=== PATIENT | male | born 1940 | race Hispanic/Latino ===

== ENCOUNTER → 2019-09-09 | Outpatient (CLI) | payer MEDICARE ==
[~2019-09-09] MED LIST: IOHEXOL-350 75 ML VIAL IV ONE
== END | disposition home or self-care (01) ==
LOC: RAH 09:53
PROVIDERS: ATTEND Internal Medicine
DX: N28.1 Cyst of kidney, acquired (principal); J98.11 Atelectasis; I70.8 Atherosclerosis of other arteries; M47.816 Spondylosis without myelopathy or radiculopathy, lumbar region
CPT/HCPCS: 74178; Q9967

== ENCOUNTER 2020-03-25 10:12 | Inpatient (IN) | payer MEDICARE ==
[2020-03-25] VITALS (22 sets, daily range): BP systolic 93–128; BP diastolic 57–79
[~2020-03-25] VITALS: Ht 175.3 cm; Wt 74.2 kg
[2020-03-25] MEDS ORDERED: TETANUS/DIPHTHERIA TOXOID [ADULT] 0.5 ML VIAL IM ONE (10:50)
[2020-03-25] MEDS ORDERED: CEFAZOLIN SODIUM 1 GM VIAL ONE ×2 (10:50→13:58)
[2020-03-25 11:18] LABS: BASOPHILS % (AUTO) 0.3 % (0.0-5.0); EOSINOPHILS % (AUTO) 0.7 % (0.0-8.0); HEMATOCRIT 35.8 % (42-54); LYMPHOCYTES % (AUTO) 6.3 % (21.0-51.0); MEAN CORPUSCULAR HEMOGLOBIN 31.5 pg (27.0-33.0); MEAN CORPUSCULAR HGB CONC 34.4 g/dL (32.0-36.0); MEAN CORPUSCULAR VOLUME 91.8 fL (79-99); MONOCYTES % (AUTO) 6.7 % (3.0-13.0); NEUTROPHILS % (AUTO) 85.7 % (40.0-77.0); PLATELET COUNT (AUTO) 144 K/uL (130-400); WHITE BLOOD COUNT (AUTO) 7.5 K/uL (4.8-10.8)
[2020-03-25 11:25] LABS: CREATININE 1.1 mg/dL (0.5-1.5); POTASSIUM 3.1 mmol/L (3.5-5.1)
[2020-03-25 11:32] LABS: ALBUMIN 3.7 g/dL (3.5-5.0); TOTAL PROTEIN, SERUM 6.9 g/dL (6.0-8.3)
[2020-03-25 11:45] LABS: INR 1.04 (0.85-1.15); PROTHROMBIN TIME 11.1 SEC (9.6-11.6)
[2020-03-25 11:46] LABS: PARTIAL THROMBOPLASTIN TIME 27.6 SEC (26.3-35.5)
[2020-03-25] MEDS ORDERED: ACETAMINOPHEN 325 MG TAB PO PRN (12:00)
[2020-03-25] MEDS ORDERED: MORPHINE SULFATE 4 MG/1ML SYG IVP PRN (12:00)
[2020-03-25] MEDS ORDERED: LACTATED RINGERS 1000ML 1,000 ML IV SCH (12:00)
[2020-03-25] MEDS ORDERED: MORPHINE SULFATE 2 MG/ML 1ML SYG IVP PRN (12:00)
[2020-03-25] MEDS ORDERED: ACETAMINOPHEN 650 MG SUPPOSITORY RC PRN (12:00)
[2020-03-25] MEDS ORDERED: CLONIDINE HCL 0.1 MG TABLET PO PRN (12:00)
[2020-03-25] MEDS ORDERED: SODIUM CHLORIDE 0.9% 1000ML 1,000 ML IV ONE (12:14)
[2020-03-25] MEDS ORDERED: POTASSIUM CHLORIDE 10MEQ/100ML 100 ML IV ONE (12:14)
[2020-03-25] MEDS ORDERED: POTASSIUM CHLORIDE 20MEQ/100ML 100 ML IV PRN ×4 (12:15→21:15)
[2020-03-25] MEDS ORDERED: LIDOCAINE HCL-MPF 1% 2ML VIAL IV PRN ×4 (12:15→21:15)
[2020-03-25] MEDS ORDERED: POTASSIUM CHLORIDE 10MEQ/100ML 100 ML IV PRN (12:15)
[2020-03-25] MEDS ORDERED: KETAMINE 50MG/ML SYRINGE 50 MG/ML DISP.SYRIN IV ONE (13:58)
[2020-03-25] MEDS ORDERED: PROPOFOL 10 MG/ML 20ML VIAL IV ONE (14:01)
[2020-03-25] MEDS ORDERED: SUCCINYLCHOLINE CHLORIDE 20 MG/ML 10 ML VIAL ONE (14:01)
[2020-03-25] MEDS ORDERED: ROCURONIUM 10MG/1ML SYR 10 MG/ML ML ONE (14:06)
[2020-03-25] MEDS ORDERED: EPHEDRINE SULFATE 50 MG/ML AMPULE ONE (14:17)
[2020-03-25] MEDS ORDERED: GENTAMICIN SULFATE 80 MG/2 ML VIAL ONE (14:21)
[2020-03-25] MEDS ORDERED: NEOSTIGMINE 5MG/5ML SYR IV ONE (14:44)
[2020-03-25] MEDS ORDERED: GLYCOPYRROLATE 1 MG/5 ML SYRINGE ONE (14:44)
[2020-03-25] MEDS ORDERED: ESMOLOL HCL 10 MG/ML 10 ML VIAL ONE (14:50)
[2020-03-25] MEDS: LACTATED RINGERS 1000ML 1,000 ML IV SCH ×2 (17:15→20:42)
[2020-03-25] MEDS: FAMOTIDINE/PF 20 MG/2 ML VIAL IV SCH (20:41)
[2020-03-25] MEDS: HYDROCODONE/ACETAMINOPHEN 5/325 MG TAB PO PRN (20:41)
[2020-03-25] MEDS ORDERED: POTASSIUM CHLORIDE 20 MEQ ERTAB PO PRN (21:15)
[2020-03-25] MEDS: CEFAZOLIN SODIUM 1 GM VIAL IVP SCH (22:10)
[2020-03-25] MEDS: POTASSIUM CHLORIDE 10% ELIXIR 20 MEQ/15 ML UDCUP PO PRN (23:52)
[2020-03-26] MEDS: POTASSIUM CHLORIDE 10% ELIXIR 20 MEQ/15 ML UDCUP PO PRN ×5 (01:58→20:46)
[2020-03-26 03:59] VITALS: BP 132/73
[2020-03-26 04:53] LABS: MEAN CORPUSCULAR HEMOGLOBIN 31.3 pg (27.0-33.0); MEAN CORPUSCULAR HGB CONC 34.7 g/dL (32.0-36.0); WHITE BLOOD COUNT (AUTO) 9.8 K/uL (4.8-10.8)
[2020-03-26 05:07] LABS: CREATININE 0.9 mg/dL (0.5-1.5); POTASSIUM 3.2 mmol/L (3.5-5.1)
[2020-03-26] MEDS: CEFAZOLIN SODIUM 1 GM VIAL IVP SCH ×3 (05:43→20:45)
[2020-03-26 07:30] VITALS: BP 125/72
[2020-03-26] MEDS: FAMOTIDINE/PF 20 MG/2 ML VIAL IV SCH ×2 (09:27→20:45)
[2020-03-26] MEDS: HYDROCODONE/ACETAMINOPHEN 5/325 MG TAB PO PRN ×2 (09:35→13:47)
[2020-03-26] MEDS: LACTATED RINGERS 1000ML 1,000 ML IV SCH (10:16)
[2020-03-26 11:00] VITALS: BP 137/78
[2020-03-26 16:00] VITALS: BP 135/76
[2020-03-26 20:00] VITALS: BP 136/81
[2020-03-27] VITALS: BP 136/76
[2020-03-27 04:00] VITALS: BP 127/70
[2020-03-27 04:41] LABS: HEMATOCRIT 34.7 % (42-54); MEAN CORPUSCULAR HEMOGLOBIN 31.1 pg (27.0-33.0); MEAN CORPUSCULAR VOLUME 91.6 fL (79-99); RED BLOOD CELL COUNT(AUTO) 3.79 MIL/uL (4.50-6.20); RED CELL DISTRIBUTION WIDTH 13.1 % (11.0-15.5); WHITE BLOOD COUNT (AUTO) 7.6 K/uL (4.8-10.8)
[2020-03-27 04:48] LABS: CREATININE 0.8 mg/dL (0.5-1.5); POTASSIUM 3.9 mmol/L (3.5-5.1)
[2020-03-27] MEDS: CEFAZOLIN SODIUM 1 GM VIAL IVP SCH ×2 (06:16→14:14)
[2020-03-27 08:00] VITALS: BP 116/68
[2020-03-27] MEDS: FAMOTIDINE/PF 20 MG/2 ML VIAL IV SCH (08:51)
[2020-03-27 12:00] VITALS: BP 103/65
[2020-03-27] MEDS ORDERED: IBUP-2076 PO (15:54)
[2020-03-27] MEDS ORDERED: ACET1TAB25 PO (15:54)
[2020-03-27 16:00] VITALS: BP 120/72
[2020-03-27] MEDS: HYDROCODONE/ACETAMINOPHEN 5/325 MG TAB PO PRN (17:27)
== END 2020-03-27 18:22 | disposition home or self-care (01) | DRG 512 ==
LOC: EDH 10:12 → EDHIP 12:00 → 3DH 16:40
PROVIDERS: ADMIT Internal Medicine Critical Care Medicine; ATTEND Internal Medicine Critical Care Medicine
PROC: 0PHH05Z Insertion of External Fixation Device into Right Radius, Open Approach (ICD-10-PCS; principal; 2020-03-25 13:57)
DX: S52.571B Other intraarticular fracture of lower end of right radius, initial encounter for open fracture type I or II (principal); E78.5 Hyperlipidemia, unspecified; I10 Essential (primary) hypertension; Z20.822 Contact with and (suspected) exposure to COVID-19; K21.9 Gastro-esophageal reflux disease without esophagitis; N40.0 Benign prostatic hyperplasia without lower urinary tract symptoms; Z86.73 Personal history of transient ischemic attack (TIA), and cerebral infarction without residual deficits; E87.8 Other disorders of electrolyte and fluid balance, not elsewhere classified; Y93.89 Activity, other specified; Y99.8 Other external cause status; W19.XXXA Unspecified fall, initial encounter; Y92.009 Unspecified place in unspecified non-institutional (private) residence as the place of occurrence of the external cause
CPT/HCPCS: 36415; 70450; 72125; 73110; 80048; 80053; 84484; 85025; 85027; 85610; 85730; 86850; 86900; 86901; 87426; 90714; 93005; 97039; A4606; G0378; J0330; J0690; J1580; J2704; J2710; J3490; J7030; J7120; U0003

== ENCOUNTER 2020-04-05 09:38 | Emergency (ER) | payer MEDICARE ==
[~2020-04-05 09:38] MED LIST changes: +ACET1TAB25 PO; +IBUP-2076 PO; -IOHEXOL-350 75 ML VIAL IV ONE
[2020-04-05] MEDS ORDERED: OXYCODONE/ACETAMIN 5/325MG TAB ONE (11:00)
== END 2020-04-05 14:39 | disposition home or self-care (01) ==
LOC: EDH 09:38
DX: S62.101B Fracture of unspecified carpal bone, right wrist, initial encounter for open fracture (principal); E78.00 Pure hypercholesterolemia, unspecified; I10 Essential (primary) hypertension; Z87.891 Personal history of nicotine dependence; W18.39XA Other fall on same level, initial encounter; Y93.89 Activity, other specified; Y92.89 Other specified places as the place of occurrence of the external cause; Y99.8 Other external cause status
CPT/HCPCS: 73110

== ENCOUNTER 2020-04-23 10:31 | Day surgery (SDC) | payer MEDICARE ==
[2020-04-20 14:00] VITALS: BP 131/61
[2020-04-20 14:31] LABS: BASOPHILS % (AUTO) 0.5 % (0.0-5.0); HEMATOCRIT 33.8 % (42-54); LYMPHOCYTES % (AUTO) 17.7 % (21.0-51.0); MEAN CORPUSCULAR HEMOGLOBIN 31.8 pg (27.0-33.0); MEAN CORPUSCULAR VOLUME 93.4 fL (79-99); MONOCYTES % (AUTO) 5.6 % (3.0-13.0); NEUTROPHILS % (AUTO) 74.9 % (40.0-77.0); PLATELET COUNT (AUTO) 177 K/uL (130-400); RED BLOOD CELL COUNT(AUTO) 3.62 MIL/uL (4.50-6.20); RED CELL DISTRIBUTION WIDTH 13.2 % (11.0-15.5)
[2020-04-20 14:52] LABS: POTASSIUM 3.6 mmol/L (3.5-5.1)
[~2020-04-23] VITALS: Ht 172.7 cm; Wt 70.8 kg
[2020-04-23] VITALS (13 sets, daily range): BP systolic 94–125; BP diastolic 55–69
[2020-04-23] MEDS ORDERED: LIDOCAINE PF 2% 5ML ABBOJECT ONE (11:10)
[2020-04-23] MEDS ORDERED: FENTANYL CITRATE PF 50 MCG/1 ML 2ML VIAL ONE (11:11)
[2020-04-23] MEDS ORDERED: PROPOFOL 10 MG/ML 20ML VIAL IV ONE (11:11)
[2020-04-23] MEDS ORDERED: ROCURONIUM 10MG/1ML SYR 10 MG/ML ML ONE (11:11)
[2020-04-23] MEDS ORDERED: LISI1TAB51 PO (11:22)
[2020-04-23] MEDS ORDERED: CLOP75TA32 PO (11:22)
[2020-04-23] MEDS ORDERED: PANT40TA54 PO (11:22)
[2020-04-23] MEDS ORDERED: ROSU20TA31 PO (11:22)
[2020-04-23] MEDS ORDERED: LEVO50CA4 PO (11:22)
[2020-04-23] MEDS ORDERED: AMLO-257 PO (11:22)
[2020-04-23] MEDS ORDERED: TAMS-1 PO (11:22)
[2020-04-23] MEDS ORDERED: CEFAZOLIN SODIUM 1 GM VIAL ONE ×2 (11:52→12:28)
[2020-04-23] MEDS ORDERED: ROPIVACAINE 0.5% 5MG/ML 30ML IJ ONE (11:53)
[2020-04-23] MEDS ORDERED: EPHEDRINE SULFATE 50 MG/ML AMPULE ONE (12:10)
== END 2020-04-23 15:20 ==
LOC: DAH 10:31
PROVIDERS: ATTEND Orthopaedic Surgery
DX: S52.531A Colles' fracture of right radius, initial encounter for closed fracture (principal); I44.2 Atrioventricular block, complete; I10 Essential (primary) hypertension; K21.9 Gastro-esophageal reflux disease without esophagitis; E11.9 Type 2 diabetes mellitus without complications; E03.9 Hypothyroidism, unspecified; Z20.828 Contact with and (suspected) exposure to other viral communicable diseases; Z86.73 Personal history of transient ischemic attack (TIA), and cerebral infarction without residual deficits; W01.0XXA Fall on same level from slipping, tripping and stumbling without subsequent striking against object, initial encounter; Y93.01 Activity, walking, marching and hiking; Y92.009 Unspecified place in unspecified non-institutional (private) residence as the place of occurrence of the external cause; Y99.8 Other external cause status
CPT/HCPCS: 25608; 36415; 64415; 64721; 73110; 76942; 80048; 82948; 85025; 93005; A4215; A4221; A4222; A4223; A4565; A4600; A4649; A4663; A4930 ×2; A6223; A6260; C1713 ×6; C1776; C9803; J0690 ×2; J2001; J2704; J2795; J3490; J7120; Q4050; U0003; J3010

== ENCOUNTER 2020-04-23 17:03 | Observation (INO) | payer MEDICARE ==
[~2020-04-23] VITALS: Ht 180.3 cm; Wt 68.9 kg
[~2020-04-23 17:03] MED LIST changes: +AMLO-257 PO; +CLOP75TA32 PO; +LEVO50CA4 PO; +LISI1TAB51 PO; +PANT40TA54 PO; +ROSU20TA31 PO; +TAMS-1 PO
[2020-04-23 17:51] LABS: BASOPHILS % (AUTO) 0.2 % (0.0-5.0); EOSINOPHILS % (AUTO) 0.4 % (0.0-8.0); HEMATOCRIT 33.1 % (42-54); MEAN CORPUSCULAR HEMOGLOBIN 31.6 pg (27.0-33.0); MEAN CORPUSCULAR HGB CONC 33.5 g/dL (32.0-36.0); MEAN CORPUSCULAR VOLUME 94.3 fL (79-99); MONOCYTES % (AUTO) 5.8 % (3.0-13.0); NEUTROPHILS % (AUTO) 86.4 % (40.0-77.0); PLATELET COUNT (AUTO) 145 K/uL (130-400); RED BLOOD CELL COUNT(AUTO) 3.51 MIL/uL (4.50-6.20); RED CELL DISTRIBUTION WIDTH 13.3 % (11.0-15.5); WHITE BLOOD COUNT (AUTO) 9.1 K/uL (4.8-10.8)
[2020-04-23 18:09] LABS: ALBUMIN 3.4 g/dL (3.5-5.0); BILIRUBIN,TOTAL 0.6 mg/dL (0.2-1.0); CREATININE 0.9 mg/dL (0.5-1.5); TOTAL PROTEIN, SERUM 6.5 g/dL (6.0-8.3)
[2020-04-23 18:10] LABS: POTASSIUM 2.6 mmol/L (3.5-5.1)
[2020-04-23] MEDS ORDERED: POTASSIUM BICARB/CIT AC 25 MEQ TABLET.EFF ONE (18:11)
[2020-04-23 18:21] LABS: B-TYPE NATRIURETIC PEPTIDE 47 pg/mL (0-100)
[2020-04-23 18:28] LABS: INR 1.08 (0.85-1.15); PROTHROMBIN TIME 11.7 SEC (9.6-11.6)
[2020-04-23 18:29] LABS: PARTIAL THROMBOPLASTIN TIME 26.8 SEC (26.3-35.5)
[2020-04-23] MEDS ORDERED: HYDROCODONE/ACETAMINOPHEN 10/325 MG TAB ONE (20:46)
[2020-04-23] MEDS: 0.9%NACL 1000ML 1,000 ML IV SCH (22:15)
[2020-04-23] MEDS ORDERED: 0.9%NACL 1000ML 1,000 ML IV SCH (22:15)
[2020-04-23] MEDS ORDERED: ONDANSETRON 4MG INJ IV PRN (22:15)
[2020-04-23] MEDS ORDERED: LACTULOSE 20 GM/30 ML UDCUP PO PRN (22:15)
[2020-04-23] MEDS ORDERED: KCL 20 MEQ ERTAB PO SCH (22:15)
[2020-04-23] MEDS ORDERED: NITROGLYCERIN 0.4 MG SL TAB SL PRN (22:15)
[2020-04-23] MEDS ORDERED: KCL 20 MEQ ERTAB PO ONE (22:56)
[2020-04-23] MEDS ORDERED: 0.9%NACL 1000ML 1,000 ML IV ONE (22:56)
[2020-04-23 23:18] LABS: RETICULOCYTE % (AUTO) 0.65 % (0.42-2.23)
[2020-04-23 23:34] LABS: % IRON SATURATION 6.9 % (30-44)
[2020-04-23 23:45] LABS: MAGNESIUM 1.6 mg/dL (1.80-2.40); PHOSPHORUS 3.8 mg/dL (2.5-4.9); THYROID STIMULATING HORMONE 1.34 uIU/mL (0.36-3.74)
[2020-04-24] MEDS ORDERED: 0.9%NACL 1000ML 1,000 ML IV ONE (00:58)
[2020-04-24] MEDS ORDERED: KCL 20 MEQ ERTAB PO ONE (00:58)
[2020-04-24 02:00] VITALS: BP 121/64
[2020-04-24] MEDS ORDERED: KCL 20 MEQ ERTAB PO SCH (02:00)
[2020-04-24 04:00] VITALS: BP 103/60
[2020-04-24] MEDS: 0.9%NACL 1000ML 1,000 ML IV SCH ×3 (06:15→22:15)
[2020-04-24] MEDS: LEVOTHYROXINE 50 MCG TABLET PO SCH (06:35)
[2020-04-24 07:03] LABS: BASOPHILS % (AUTO) 0.1 % (0.0-5.0); EOSINOPHILS % (AUTO) 1.7 % (0.0-8.0); HEMATOCRIT 28.9 % (42-54); LYMPHOCYTES % (AUTO) 9.4 % (21.0-51.0); MEAN CORPUSCULAR HEMOGLOBIN 31.2 pg (27.0-33.0); MEAN CORPUSCULAR HGB CONC 33.6 g/dL (32.0-36.0); MEAN CORPUSCULAR VOLUME 92.9 fL (79-99); MONOCYTES % (AUTO) 8.4 % (3.0-13.0); NEUTROPHILS % (AUTO) 80.1 % (40.0-77.0); PLATELET COUNT (AUTO) 140 K/uL (130-400); RED BLOOD CELL COUNT(AUTO) 3.11 MIL/uL (4.50-6.20); RED CELL DISTRIBUTION WIDTH 13.6 % (11.0-15.5); WHITE BLOOD COUNT (AUTO) 7.6 K/uL (4.8-10.8)
[2020-04-24 08:00] VITALS: BP 115/65
[2020-04-24] MEDS ORDERED: IRON SUCROSE COMPLEX 300 MG in 0.9%NACL 50ML 50 ML IV SCH (09:00)
[2020-04-24] MEDS ORDERED: PANTOPRAZOLE 40 MG TAB DR PO SCH (09:00)
[2020-04-24] MEDS: FAMOTIDINE 20MG VIAL IV SCH ×2 (09:12→21:18)
[2020-04-24] MEDS: CLOPIDOGREL 75MG TAB PO SCH (09:13)
[2020-04-24 12:00] VITALS: BP 94/53
[2020-04-24] MEDS ORDERED: COMPOUND IV MISC 1 EACH IVSOLN MISC PRN (13:00)
[2020-04-24] MEDS: IRON SUCROSE COMPLEX 300 MG in 0.9% NACL 250ML 250 ML IV SCH (13:08)
[2020-04-24 16:00] VITALS: BP 111/61
[2020-04-24 20:07] VITALS: BP 115/66
[2020-04-24] MEDS ORDERED: ATORVASTATIN 40 MG TABLET PO SCH (21:00)
[2020-04-25 00:34] VITALS: BP 110/58
[2020-04-25 05:18] VITALS: BP 146/72
[2020-04-25] MEDS: LEVOTHYROXINE 50 MCG TABLET PO SCH (06:58)
[2020-04-25 07:17] LABS: APPEARANCE,URINE Clear (CLEAR); BILIRUBIN,URINE Negative (NEGATIVE); COLOR,URINE Yellow (YELLOW); GLUCOSE, URINE (UA) Negative (NEGATIVE); KETONES,URINE Negative (NEGATIVE); LEUKOCYTE ESTERASE ,URINE Negative (NEGATIVE); NITRATE,URINE Negative (NEGATIVE); OCCULT BLOOD,URINE Negative (NEGATIVE); PROTEIN,URINE Negative (NEGATIVE)
[2020-04-25 08:00] VITALS: BP 113/62
[2020-04-25] MEDS: 0.9%NACL 1000ML 1,000 ML IV SCH (09:00)
[2020-04-25] MEDS: CLOPIDOGREL 75MG TAB PO SCH (10:05)
[2020-04-25] MEDS: FAMOTIDINE 20MG VIAL IV SCH (10:05)
[2020-04-25 12:00] VITALS: BP 93/49
[2020-04-25] MEDS: IRON SUCROSE COMPLEX 300 MG in 0.9% NACL 250ML 250 ML IV SCH (13:03)
== END 2020-04-25 18:20 | disposition home or self-care (01) ==
LOC: EDH 17:03 → EDHIP 22:15 → 3DH 04-24 01:39
PROVIDERS: ADMIT Internal Medicine; ATTEND Internal Medicine
DX: R55 Syncope and collapse (principal); Z20.822 Contact with and (suspected) exposure to COVID-19; E87.5 Hyperkalemia; D64.9 Anemia, unspecified; I10 Essential (primary) hypertension; E78.5 Hyperlipidemia, unspecified; E03.9 Hypothyroidism, unspecified; I69.351 Hemiplegia and hemiparesis following cerebral infarction affecting right dominant side; N40.0 Benign prostatic hyperplasia without lower urinary tract symptoms; K21.9 Gastro-esophageal reflux disease without esophagitis; E78.00 Pure hypercholesterolemia, unspecified; I37.1 Nonrheumatic pulmonary valve insufficiency; I34.0 Nonrheumatic mitral (valve) insufficiency; Z79.02 Long term (current) use of antithrombotics/antiplatelets; Z79.899 Other long term (current) drug therapy
CPT/HCPCS: 36415 ×2; 70450; 71045; 80048; 80053; 81003; 82550; 83540; 83550; 83735; 83880; 84100; 84145; 84443; 84484; 85025 ×2; 85045; 85610; 85730; 87426; 93005 ×2; 93306; 93356; 93880; 96361 ×2; 96365; 96366; 96375; 96376 ×2; 97039 ×3; 97161; 97530; 99291; G0378 ×42; G8979; G8980; G8981; G8982; G8983; J3490 ×3; J7030 ×2; U0003; J1756; J7050

== ENCOUNTER 2021-04-11 07:17 | Day surgery (SDC) | payer MEDICARE ==
[2021-04-05 11:13] LABS: BASOPHILS % (AUTO) 0.5 % (0.0-5.0); EOSINOPHILS % (AUTO) 1.5 % (0.0-8.0); HEMATOCRIT 37.6 % (42-54); LYMPHOCYTES % (AUTO) 15.6 % (21.0-51.0); MEAN CORPUSCULAR HEMOGLOBIN 32.3 pg (27.0-33.0); MEAN CORPUSCULAR HGB CONC 34.8 g/dL (32.0-36.0); MEAN CORPUSCULAR VOLUME 92.6 fL (79-99); MONOCYTES % (AUTO) 6.2 % (3.0-13.0); NEUTROPHILS % (AUTO) 75.8 % (40.0-77.0); PLATELET COUNT (AUTO) 159 K/uL (130-400); RED BLOOD CELL COUNT(AUTO) 4.06 MIL/uL (4.50-6.20); WHITE BLOOD COUNT (AUTO) 5.5 K/uL (4.8-10.8)
[2021-04-05 11:21] LABS: CREATININE 0.8 mg/dL (0.5-1.5); POTASSIUM 3.3 mmol/L (3.5-5.1)
[2021-04-05 14:39] VITALS: BP 152/72
[2021-04-11] VITALS (16 sets, daily range): BP systolic 100–128; BP diastolic 50–85
[~2021-04-11] VITALS: Ht 172.7 cm; Wt 74.4 kg
[~2021-04-11 07:17] MED LIST changes: -ACET1TAB25 PO; -IBUP-2076 PO
[2021-04-11] MEDS ORDERED: LACTATED RINGERS 1000ML 1,000 ML IV ONE (08:21)
[2021-04-11] MEDS: CEFAZOLIN SODIUM 1 GM VIAL IVP SCH ×2 (08:30→11:30)
[2021-04-11] MEDS ORDERED: LIDOCAINE PF 100MG/5ML (2%) SYRINGE 5ML ONE (11:24)
[2021-04-11] MEDS ORDERED: SUCCINYLCHOLINE CHLORIDE 20 MG/ML 10 ML VIAL ONE (11:24)
[2021-04-11] MEDS ORDERED: PROPOFOL 10 MG/ML 20ML VIAL IV ONE (11:24)
[2021-04-11] MEDS ORDERED: 0.9%NACL 10ML VIAL ONE ×2 (11:24→11:31)
[2021-04-11] MEDS ORDERED: ROCURONIUM 10MG/1ML SYR 10 MG/ML ML ONE (11:24)
[2021-04-11] MEDS ORDERED: ROPIVACAINE 0.5% 5MG/ML 30ML IJ ONE (11:30)
[2021-04-11] MEDS ORDERED: EPHEDRINE SULFATE 50 MG/ML AMPULE ONE (11:39)
[2021-04-11] MEDS ORDERED: GLYCOPYRROLATE 1 MG/5 ML SYRINGE ONE (12:05)
[2021-04-11] MEDS ORDERED: NEOSTIGMINE 5MG/5ML SYR IV ONE (12:32)
[2021-04-11] MEDS ORDERED: MEPERIDINE-PF 25 MG/ML SYG ONE (13:02)
== END 2021-04-11 14:30 | disposition home or self-care (01) ==
LOC: DAH 07:17
PROVIDERS: ATTEND Surgery
DX: K40.30 Unilateral inguinal hernia, with obstruction, without gangrene, not specified as recurrent (principal); Z20.822 Contact with and (suspected) exposure to COVID-19; I10 Essential (primary) hypertension; E11.9 Type 2 diabetes mellitus without complications; E78.5 Hyperlipidemia, unspecified; K21.9 Gastro-esophageal reflux disease without esophagitis; Z86.73 Personal history of transient ischemic attack (TIA), and cerebral infarction without residual deficits; Z82.49 Family history of ischemic heart disease and other diseases of the circulatory system; Z80.9 Family history of malignant neoplasm, unspecified; Z87.891 Personal history of nicotine dependence; Z79.01 Long term (current) use of anticoagulants; Z98.890 Other specified postprocedural states; Z79.899 Other long term (current) drug therapy
CPT/HCPCS: 36415; 49507; 64486; 80048; 82948 ×2; 85025; 87635; A4213; A4215; A4221; A4222; A4223; A4452; A4663; A4930; A5120; A6260; C1781; C9803; J0330; J0690; J2001; J2175; J2704; J2710; J2795; J3490 ×2; J7030 ×2; J7120

== ENCOUNTER → 2021-04-28 | Outpatient (CLI) | payer MEDICARE | END | disposition home or self-care (01) | LOC: RAH 09:43 | PROVIDERS: ATTEND Surgery | DX: N43.3 Hydrocele, unspecified (principal); N50.819 Testicular pain, unspecified; Z98.890 Other specified postprocedural states | CPT/HCPCS: 76870 ==

== ENCOUNTER 2021-07-14 06:42 | Day surgery (SDC) | payer MEDICARE ==
[2021-07-08 12:19] LABS: BASOPHILS % (AUTO) 0.6 % (0.0-5.0); EOSINOPHILS % (AUTO) 1.2 % (0.0-8.0); HEMATOCRIT 33.8 % (42-54); LYMPHOCYTES % (AUTO) 14.1 % (21.0-51.0); MEAN CORPUSCULAR HGB CONC 32.8 g/dL (32.0-36.0); MEAN CORPUSCULAR VOLUME 91.4 fL (79-99); MONOCYTES % (AUTO) 6.6 % (3.0-13.0); NEUTROPHILS % (AUTO) 77.1 % (40.0-77.0); PLATELET COUNT (AUTO) 167 K/uL (130-400); RED CELL DISTRIBUTION WIDTH 15.4 % (11.0-15.5); WHITE BLOOD COUNT (AUTO) 4.8 K/uL (4.8-10.8)
[2021-07-08 12:30] LABS: INR 1.01 (0.85-1.15)
[2021-07-08 12:32] LABS: PARTIAL THROMBOPLASTIN TIME 31.6 SEC (26.3-35.5)
[2021-07-08 12:33] LABS: CREATININE 0.8 mg/dL (0.5-1.5); POTASSIUM 3.3 mmol/L (3.5-5.1)
[2021-07-13 11:32] VITALS: BP 158/84
[~2021-07-14] VITALS: Ht 175.3 cm; Wt 72.2 kg
[2021-07-14] VITALS (18 sets, daily range): BP systolic 109–128; BP diastolic 62–86
[~2021-07-14 06:42] MED LIST changes: +CEFAZOLIN SODIUM 1 GM VIAL IVP SCH
[2021-07-14] MEDS ORDERED: LACTATED RINGERS 1000ML 1,000 ML IV ONE (07:41)
[2021-07-14] MEDS ORDERED: DOCU-280 PO (08:28)
[2021-07-14] MEDS ORDERED: ROCURONIUM 10MG/1ML SYR 10 MG/ML ML ONE (10:29)
[2021-07-14] MEDS ORDERED: ONDANSETRON 4MG INJ ONE (10:29)
[2021-07-14] MEDS ORDERED: GLYCOPYRROLATE 1 MG/5 ML SYRINGE ONE (10:29)
[2021-07-14] MEDS ORDERED: LIDOCAINE PF 100MG/5ML (2%) SYRINGE 5ML ONE (10:29)
[2021-07-14] MEDS ORDERED: DEXAMETHASONE SOD PHOSPHATE 10MG/ML 1ML VIAL ONE (10:29)
[2021-07-14] MEDS ORDERED: SUCCINYLCHOLINE CHLORIDE 20 MG/ML 10 ML VIAL ONE (10:29)
[2021-07-14] MEDS ORDERED: PROPOFOL 10 MG/ML 20ML VIAL IV ONE (10:29)
[2021-07-14] MEDS ORDERED: NEOSTIGMINE 5MG/5ML SYR IV ONE (10:29)
[2021-07-14] MEDS ORDERED: BUPIVACAINE/PF 0.25% 30ML VIAL IJ ONE (10:30)
[2021-07-14] MEDS ORDERED: FENTANYL CITRATE PF 50 MCG/1 ML 2ML VIAL ONE (10:30)
[2021-07-14] MEDS ORDERED: NEOMY SULF/BACITRAC ZN/POLY OINT 30GM TUBE TP ONE (10:32)
[2021-07-14] MEDS ORDERED: ATROPINE 1MG SYG IVP ONE (10:37)
[2021-07-14] MEDS ORDERED: EPHEDRINE SULFATE 50 MG/ML AMPULE ONE (10:47)
[2021-07-14] MEDS ORDERED: PHENYLEPHRINE HCL 10 MG/ML 1ML VIAL IV ONE (11:26)
[2021-07-14] MEDS ORDERED: METOPROLOL TARTRATE 1 MG/ML 5ML VIAL IV ONE (11:28)
== END 2021-07-14 13:20 | disposition home or self-care (01) ==
LOC: DAH 06:42
PROVIDERS: ATTEND Urology
DX: N50.89 Other specified disorders of the male genital organs (principal); N43.2 Other hydrocele; I10 Essential (primary) hypertension; K21.9 Gastro-esophageal reflux disease without esophagitis; E03.9 Hypothyroidism, unspecified; E78.5 Hyperlipidemia, unspecified; Z98.890 Other specified postprocedural states; Z79.890 Hormone replacement therapy; Z79.899 Other long term (current) drug therapy; Z86.73 Personal history of transient ischemic attack (TIA), and cerebral infarction without residual deficits; Z79.01 Long term (current) use of anticoagulants
CPT/HCPCS: 36415; 54522; 71045; 80048; 85025; 85610; 85730; 87635; 93005; A4215; A4221; A4222; A4223; A4606; A4663; A6260; C9803; J0330; J0461; J0690; J1100; J2001; J2370; J2405; J2704; J2710; J3010; J3490 ×4; J7030; J7120

== ENCOUNTER 2021-07-25 08:41 | Emergency (ER) | payer MEDICARE ==
[~2021-07-25] VITALS: Ht 175.3 cm; Wt 68.0 kg
[~2021-07-25 08:41] MED LIST changes: -CEFAZOLIN SODIUM 1 GM VIAL IVP SCH; +DOCU-280 PO
[2021-07-25 09:30] LABS: BASOPHILS % (AUTO) 0.1 % (0.0-5.0); EOSINOPHILS % (AUTO) 0.3 % (0.0-8.0); LYMPHOCYTES % (AUTO) 5.3 % (21.0-51.0); MEAN CORPUSCULAR HEMOGLOBIN 28.9 pg (27.0-33.0); MEAN CORPUSCULAR HGB CONC 32.7 g/dL (32.0-36.0); MEAN CORPUSCULAR VOLUME 88.2 fL (79-99); MONOCYTES % (AUTO) 7.5 % (3.0-13.0); NEUTROPHILS % (AUTO) 86.3 % (40.0-77.0); PLATELET COUNT (AUTO) 177 K/uL (130-400); RED BLOOD CELL COUNT(AUTO) 3.74 MIL/uL (4.50-6.20); RED CELL DISTRIBUTION WIDTH 15.9 % (11.0-15.5); WHITE BLOOD COUNT (AUTO) 7.9 K/uL (4.8-10.8)
[2021-07-25 09:33] VITALS: BP 141/83
[2021-07-25 09:33] LABS: CREATININE 0.9 mg/dL (0.5-1.5); POTASSIUM 3.1 mmol/L (3.5-5.1)
[2021-07-25 09:38] LABS: ALBUMIN 3.4 g/dL (3.5-5.0); BILIRUBIN,TOTAL 0.4 mg/dL (0.2-1.0); TOTAL PROTEIN, SERUM 7.4 g/dL (6.0-8.3)
[2021-07-25 09:41] LABS: APPEARANCE,URINE Cloudy (CLEAR); BILIRUBIN,URINE Negative (NEGATIVE); COLOR,URINE Yellow (YELLOW); GLUCOSE, URINE (UA) Negative (NEGATIVE); KETONES,URINE Negative (NEGATIVE); LEUKOCYTE ESTERASE ,URINE Large (NEGATIVE); NITRATE,URINE Negative (NEGATIVE); OCCULT BLOOD,URINE Large (NEGATIVE); PH,URINE 8.5 (5.0-8.0); PROTEIN,URINE POS 1+ mg/dL (NEGATIVE)
[2021-07-25 09:46] LABS: BACTERIA,URINE Rare /HPF (None Seen); RBC,URINE >100 /HPF (0-1); SQUAMOUS EPITHELIAL CELL,UR Rare /HPF (0-2); WBC,URINE 26-50 /HPF (0-1)
[2021-07-25] MEDS ORDERED: POTASSIUM BICARB/CIT AC 25 MEQ TABLET.EFF PO ONE (10:00)
[2021-07-25] MEDS ORDERED: CEPH500B PO (10:10)
== END 2021-07-25 10:33 | disposition home or self-care (01) ==
LOC: EDH 08:41
DX: N39.0 Urinary tract infection, site not specified (principal); R31.9 Hematuria, unspecified; I10 Essential (primary) hypertension; E78.00 Pure hypercholesterolemia, unspecified; Z79.899 Other long term (current) drug therapy; Z86.73 Personal history of transient ischemic attack (TIA), and cerebral infarction without residual deficits
CPT/HCPCS: 36415; 51702; 80053; 81001; 85025; 87077; 87088; 87186

== ENCOUNTER → 2022-01-24 | Outpatient (CLI) | payer MEDICARE ==
[~2022-01-24] MED LIST changes: +CEPH500B PO; -DOCU-280 PO
== END | disposition home or self-care (01) ==
LOC: SLP 19:08
PROVIDERS: ATTEND Nurse Practitioner Family
DX: G47.33 Obstructive sleep apnea (adult) (pediatric) (principal)
CPT/HCPCS: 95810

== ENCOUNTER → 2022-02-03 | Outpatient (CLI) | payer MEDICARE | END | disposition home or self-care (01) | LOC: SLP 19:50 | PROVIDERS: ATTEND Nurse Practitioner Family | DX: G47.33 Obstructive sleep apnea (adult) (pediatric) (principal) | CPT/HCPCS: 95811 ==

== ENCOUNTER 2022-02-22 08:57 | Emergency (ER) | payer MEDICARE ==
[~2022-02-22] VITALS: Ht 180.3 cm; Wt 68.0 kg
[2022-02-22 09:24] LABS: BASOPHILS % (AUTO) 0.1 % (0.0-5.0); HEMATOCRIT 29.5 % (42-54); LYMPHOCYTES % (AUTO) 4.1 % (21.0-51.0); MEAN CORPUSCULAR HEMOGLOBIN 30.3 pg (27.0-33.0); MEAN CORPUSCULAR HGB CONC 34.6 g/dL (32.0-36.0); MEAN CORPUSCULAR VOLUME 87.5 fL (79-99); MONOCYTES % (AUTO) 6.2 % (3.0-13.0); NEUTROPHILS % (AUTO) 89.1 % (40.0-77.0); PLATELET COUNT (AUTO) 275 K/uL (130-400); RED BLOOD CELL COUNT(AUTO) 3.37 MIL/uL (4.50-6.20); RED CELL DISTRIBUTION WIDTH 13.8 % (11.0-15.5); WHITE BLOOD COUNT (AUTO) 14.1 K/uL (4.8-10.8)
[2022-02-22 09:33] LABS: CREATININE 1.4 mg/dL (0.5-1.5); POTASSIUM 3.2 mmol/L (3.5-5.1)
[2022-02-22 09:38] LABS: ALBUMIN 2.7 g/dL (3.5-5.0); TOTAL PROTEIN, SERUM 7.6 g/dL (6.0-8.3)
[2022-02-22 10:02] LABS: APPEARANCE,URINE TURBID (CLEAR); BILIRUBIN,URINE NEGATIVE (NEGATIVE); COLOR,URINE YELLOW (YELLOW); GLUCOSE, URINE (UA) NEGATIVE (NEGATIVE); KETONES,URINE NEGATIVE (NEGATIVE); LEUKOCYTE ESTERASE ,URINE 500 Leu/uL (NEGATIVE); NITRATE,URINE NEGATIVE (NEGATIVE); OCCULT BLOOD,URINE MODERATE (NEGATIVE); PROTEIN,URINE 70 mg/dL (NEGATIVE); UROBILINOGEN,URINE 3 mg/dL (0.2-1.0)
[2022-02-22 10:27] LABS: BACTERIA,URINE MANY /HPF (None Seen); MUCUS,URINE RARE LPF (None Seen); RBC,URINE 26-50 /HPF (0-1); SQUAMOUS EPITHELIAL CELL,UR RARE /HPF (0-2); WBC,URINE TNTC /HPF (0-1); YEAST,URINE BUDDING FEW /HPF (None Seen)
[2022-02-22] MEDS ORDERED: POTASSIUM BICARB/CIT AC 25 MEQ TABLET.EFF PO ONE (12:00)
[2022-02-22] MEDS ORDERED: LEVO750T68 PO (12:57)
[2022-02-22 13:27] VITALS: BP 111/65
== END 2022-02-22 13:30 | disposition home or self-care (01) ==
LOC: EDH 08:57
DX: N39.0 Urinary tract infection, site not specified (principal); I11.9 Hypertensive heart disease without heart failure; R31.9 Hematuria, unspecified; E78.00 Pure hypercholesterolemia, unspecified; Z79.899 Other long term (current) drug therapy; Z98.890 Other specified postprocedural states
CPT/HCPCS: 36415; 80053; 81001; 83605; 85025; 87040; 87077; 87088; 87186

== ENCOUNTER 2022-02-25 22:33 | Emergency (ER) | payer MEDICARE ==
[~2022-02-25] VITALS: Ht 180.3 cm; Wt 68.0 kg
[~2022-02-25 22:33] MED LIST changes: +LEVO750T68 PO
[2022-02-25 22:56] LABS: BASOPHILS % (AUTO) 0.2 % (0.0-5.0); LYMPHOCYTES % (AUTO) 5.6 % (21.0-51.0); MEAN CORPUSCULAR HEMOGLOBIN 29.6 pg (27.0-33.0); MEAN CORPUSCULAR VOLUME 89.7 fL (79-99); MONOCYTES % (AUTO) 5.7 % (3.0-13.0); NEUTROPHILS % (AUTO) 87.6 % (40.0-77.0); PLATELET COUNT (AUTO) 261 K/uL (130-400); RED BLOOD CELL COUNT(AUTO) 3.01 MIL/uL (4.50-6.20); RED CELL DISTRIBUTION WIDTH 14.1 % (11.0-15.5); WHITE BLOOD COUNT (AUTO) 12.8 K/uL (4.8-10.8)
[2022-02-25 23:19] LABS: ALBUMIN 2.3 g/dL (3.5-5.0); CREATININE 1.9 mg/dL (0.5-1.5); TOTAL PROTEIN, SERUM 6.9 g/dL (6.0-8.3)
[2022-02-25 23:23] LABS: POTASSIUM 2.8 mmol/L (3.5-5.1)
[2022-02-25] MEDS ORDERED: POTASSIUM BICARB/CIT AC 25 MEQ TABLET.EFF PO STA (23:43)
[2022-02-26] MEDS ORDERED: POTA-79 PO (03:50)
[2022-02-26 06:46] VITALS: BP 102/53
== END 2022-02-26 09:37 | disposition home or self-care (01) ==
LOC: EDH 22:33
DX: E87.6 Hypokalemia (principal); E78.00 Pure hypercholesterolemia, unspecified; I10 Essential (primary) hypertension; E03.9 Hypothyroidism, unspecified; Z79.899 Other long term (current) drug therapy
CPT/HCPCS: 36415; 80053; 84132; 84484; 85025; 93005